=== PATIENT | female | born 1990 | race Two or more races ===

== ENCOUNTER 2021-02-04 21:42 | Emergency (ER) | payer OTHER ==
[~2021-02-04] VITALS: Ht 172.7 cm; Wt 82.6 kg
== END 2021-02-04 22:46 | disposition home or self-care (01) ==
LOC: ER 21:42
DX: S00.212A Abrasion of left eyelid and periocular area, initial encounter (principal); X58.XXXA Exposure to other specified factors, initial encounter; Y93.89 Activity, other specified; Y92.89 Other specified places as the place of occurrence of the external cause; Y99.8 Other external cause status

== ENCOUNTER 2021-04-19 23:35 | Emergency (ER) | payer OTHER ==
[~2021-04-19] VITALS: Ht 172.7 cm; Wt 90.7 kg
== END 2021-04-20 03:54 ==
LOC: ER 23:35
DX: R00.2 Palpitations (principal); T43.615A Adverse effect of caffeine, initial encounter

== ENCOUNTER 2022-10-05 02:47 | Emergency (ER) | payer OTHER ==
[~2022-10-05] VITALS: Ht 172.7 cm; Wt 75.3 kg
[2022-10-05] MEDS ORDERED: LEVSIN/SL0.125 MG SL (04:40)
== END 2022-10-05 04:47 ==
LOC: ER 02:47
DX: R00.2 Palpitations (principal)

== ENCOUNTER → 2022-10-19 | Emergency (ER) | payer OTHER ==
[~2022-10-19] VITALS: Ht 172.7 cm; Wt 72.6 kg
[~2022-10-19] MED LIST: AMOX1TAB5 PO; LEVSIN/SL0.125 MG SL; NAPROXEN500 MG PO
== END | disposition home or self-care (01) ==
LOC: ER 22:39
DX: L05.01 Pilonidal cyst with abscess (principal)

== ENCOUNTER 2023-07-01 22:04 | Emergency (ER) | payer OTHER ==
[~2023-07-01] VITALS: Ht 175.3 cm; Wt 72.1 kg
== END 2023-07-02 | disposition left against medical advice (07) ==
LOC: ER 22:04
DX: Z53.21 Procedure and treatment not carried out due to patient leaving prior to being seen by health care provider (principal)